=== PATIENT | male | born 2000 | race African-American/Black ===

== ENCOUNTER 2021-01-29 21:15 | Emergency (ER) | payer BC, SELFPAY ==
--- NOTE | ~2021-01-29 | XR_ITS ---
EXAMINATION: XR chest 1V portable 01/29/2021 23:40 INDICATION: Upper respiratory infection. Cough. PROCEDURE: AP portable chest COMPARISON: No prior studies for comparison. FINDINGS: The lungs are clear. The cardiomediastinal silhouette is within normal limits. There are no pleural effusions. There is no pneumothorax suspected. IMPRESSION: 1: NO ACUTE CARDIOPULMONARY DISEASE. Reviewed, dictated and finalized at location A. OR PIPING DESIGNER
[2021-01-29 21:23] VITALS: BP 141/83; PULSE 91; RESP 18; TEMP 36.6; O2SAT 97
--- NOTE | 2021-01-29 22:55 | ED.URI ---
HPI - URI/Sore Throat General Chief Complaint: Upper Respiratory Infection Stated Complaint: cough, chest tightness Time Seen by Provider: 01/29/21 22:55 Source: patient Mode of arrival: ambulatory Limitations: no limitations History of Present Illness HPI Narrative: The patient is a 20-year-old male presenting for evaluation of cough, congestion, chest tightness. Patient states he has felt unwell over the past 72 hours. Denies fever or chills. Reports sinus congestion, runny nose. He denies sore throat, ear pain. Reports cough without significant shortness of breath. Reports a tightness in his chest without wheezing patient denies any pleuritic chest pain. No pain with deep inspiration. No leg swelling or calf pain. States he has received 1 Covid vaccination in his series. 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 Denies loss of sense of taste or smell. No abdominal pain, nausea, vomiting, diarrhea. Denies myalgias patient states she has been taking DayQuil/NyQuil without much improvement in his symptoms. Related Data Allergies Allergy/AdvReac Type Severity Reaction Status Date / Time lidocaine Allergy Hives Verified 01/29/21 21:49 Review of Systems Review of Systems: CONSTITUTIONAL: Denies fever, chills, or sweats. EYES: Denies visual changes, redness, or discharge. ENT: Reports rhinorrhea and congestion CARDIOVASCULAR: Denies chest pain, palpitations, or edema. Does report chest tightness. RESPIRATORY: Reports cough without shortness of breath GASTROINTESTINAL: Denies abdominal pain, nausea, vomiting, or diarrhea. GENITOURINARY: Denies dysuria or hematuria. SKIN: Denies rash or itching. MUSCULOSKELETAL: Denies back pain, joint pain, or myalgia. NEUROLOGIC: Denies headache, numbness, or weakness. [facility] Social History Social History (Updated 01/29/21 @ 23:25 by Minerva Elkins MD) Smoking status: Current every day smoker Tobacco type: e-cigarettes/vaping Alcohol intake: never Substance use: current Substance use type: marijuana Gender identity (if verbalized by the patient): Male Exam Narrative: GENERAL: Awake, alert, conversant HEAD: Normocephalic, atraumatic. EYES: PERRLA and EOMI. ENT: Rhinorrhea, uvula is midline without erythema, edema, induration NECK: Supple. No lymphadenopathy. CHEST: No respiratory distress, breathing even and non labored, coarse respirations bilaterally, no wheezing, no crackles HEART: Regular rate, sinus rhythm ABDOMEN:Non distended, non tender EXTREMITIES: Normal range of motion. No edema. SKIN: Warm, dry, no rash. NEURO:No focal deficits. Alert and oriented x3 Course Vital Signs Vital signs: Vital Signs Temperature 36.6 C 01/29/21 21:23 Pulse Rate 91 01/29/21 21:23 Respiratory Rate 18 01/29/21 21:23 Blood Pressure 141/83 H 01/29/21 21:23 Pulse Oximetry 97 01/29/21 21:23 Temperature 36.6 C 01/29/21 21:23 Pulse Rate 91 01/29/21 21:23 Respiratory Rate 18 01/29/21 21:23 Blood Pressure 141/83 H 01/29/21 21:23 Pulse Oximetry 97 01/29/21 21:23 MDM - URI/Sore Throat MDM Narrative Medical decision making narrative: Patient presenting for evaluation of cough, congestion, chest tightness that has lasted over 72 hours. The time of assessment, patient does have rhinorrhea, sinus congestion. Vital signs are normal. He is afebrile. Patient without typical Covid type features. 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 Laboratory results are reassuring. No lymphopenia. No anemia. No electrolyte derangement or acute kidney injury. Chest x-ray without evidence of pneumonia. At this point, patient is hemodynamically stable, will be able to be discharged home, will prescribe medications for symptomatic relief. At this point, patient is afebrile, no leukocytosis, nothing to be suggestive of bacterial infection, and per guidelines, patient does not warrant anti
--- NOTE | 2021-01-29 23:22 | ECG_ITS ---
Measurements Intervals [place] Rate: 63 P: 61 [place]: 172 QRS: 29 QRSD: 110 T: 27 QT: 400 QTc: 412 Interpretive Statements SINUS RHYTHM WITH SINUS ARRHYTHMIA ST ELEVATION IN DIFFUSE LEADS CONSISTENT WITH INJURY, PERICARDITIS, OR EARLY REPOLARIZATION ABNORMAL ECG Electronically Signed On 01-30-2021 6:36:30 BLOW PIT OPERATOR by Kojo Juan D.O.
[2021-01-29 23:39] LABS: Basophils Absolute Auto 0.1 K/mm3 (0.0-0.1); Basophils Percent Auto 1.1 % (0.2-1.2); Eosinophils Absolute Auto 0.2 K/mm3 (0-0.3); Hematocrit 43.2 % (42.0-52.0); Hemoglobin 14.9 g/dL (14.0-18.0); Immature Granulocyte Absolute 0.01 K/mm3 (0.00-0.031); Immature Granulocyte Percent A 0.2 % (0-0.5); Mean Corpuscular HGB Conc 34.5 g/dl (32-36); Mean Platelet Volume 8.8 fl (7.4-10.4); Monocytes Absolute Auto 0.6 K/mm3 (0.1-0.6); Monocytes Percent Auto 12.4 % (2.6-8.5); Neutrophils Absolute Auto 1.7 K/mm3 (1.3-6.7); Neutrophils Percent Auto 38.3 % (45.5-73.1); Platelet Count Result 209 k/mm3 (150-375); White Blood Count 4.4 K/mm3 (4.5-10.0)
[2021-01-29 23:50] LABS: Anion Gap 9 mmol/L (8-16); Blood Urea Nitrogen 10 mg/dL (9-20); Carbon Dioxide 24 mmol/L (22-30); Chloride 102 mmol/L (98-107); Estimated CRCL calculation 139 ml/min; Estimated Glomerular Filt Rate > 60; Glucose 105 mg/dL (65-110); Potassium 3.6 mmol/L (3.4-5.0); Sodium 135 mmol/L (137-145)
[2021-01-30 00:02] LABS: Troponin I < 0.012 ng/mL (0.000-0.034)
[2021-01-30 01:08] VITALS: BP 148/81; PULSE 80; RESP 16; O2SAT 100
[2021-01-30 17:55] LABS: SARS-CoV-2 RNA PCR Negative
== END 2021-01-30 01:09 | disposition home or self-care (01) ==
PROVIDERS: Emergency Provider Emergency Medicine
DX: J06.9 Acute upper respiratory infection, unspecified (principal); Z20.822 Contact with and (suspected) exposure to COVID-19; F17.290 Nicotine dependence, other tobacco product, uncomplicated; R94.31 Abnormal electrocardiogram [ECG] [EKG]
CPT/HCPCS: 36415; 71045; 80048; 84484; 85025; 93005; 99284; C9803; U0003; U0005

== ENCOUNTER 2022-06-10 04:41 | Emergency (ER) | payer BC, SELFPAY ==
[2022-06-10 04:45] VITALS: PULSE 57; RESP 21; TEMP 36.9; O2SAT 97
[2022-06-10 04:46] VITALS: BP 140/61; PULSE 59; RESP 23; O2SAT 97
[2022-06-10 04:48] VITALS: BP 140/61
[2022-06-10 05:03] LABS: Basophils Absolute Auto 0.1 K/mm3 (0.0-0.1); Eosinophils Absolute Auto 0.1 K/mm3 (0-0.3); Eosinophils Percent Auto 1.5 % (0-4.4); Hemoglobin 13.4 g/dL (14.0-18.0); Immature Granulocyte Absolute 0.01 K/mm3 (0.00-0.031); Immature Granulocyte Percent A 0.2 % (0-0.5); Lymphocytes Absolute Auto 0.94 K/mm3 (0.9-3.2); Lymphocytes Percent Auto 15.5 % (18.3-44.2); Mean Corpuscular HGB Conc 33.5 g/dl (32-36); Mean Corpuscular Hemoglobin 30.8 pg (26-34); Mean Platelet Volume 8.7 fl (7.4-10.4); Monocytes Absolute Auto 0.2 K/mm3 (0.1-0.6); Monocytes Percent Auto 3.8 % (2.6-8.5); Neutrophils Absolute Auto 4.7 K/mm3 (1.3-6.7); Platelet Count Result 244 k/mm3 (150-375); Red Blood Count 4.35 M/mm3 (4.6-6.20); Red Cell Distribution Width 12.3 % (11.5-14.5); White Blood Count 6.1 K/mm3 (4.5-10.0)
[2022-06-10 05:12] LABS: Alanine Aminotransferase 27 U/L (6-50); Albumin Level 4.5 g/dL (3.5-5.1); Alkaline Phosphatase 70 U/L (38-126); Anion Gap 7 mmol/L (8-16); Aspartate Amino Transferase 27 U/L (17-59); Bilirubin,Total 0.7 mg/dL (0.2-1.3); Blood Urea Nitrogen 11 mg/dL (9-20); Calcium 9.2 mg/dL (8.4-10.2); Carbon Dioxide 28 mmol/L (22-30); Chloride 106 mmol/L (98-107); Estimated CRCL calculation 138 ml/min; Estimated Glomerular Filt Rate > 60; Glucose 116 mg/dL (65-110); Lipase 31 U/L (23-300); Potassium 3.6 mmol/L (3.4-5.0); Sodium 141 mmol/L (137-145)
[2022-06-10] MEDS: SODIUM CHLORIDE 0.9% IV 1,000 ML 999 ML IV CONT (05:20)
[2022-06-10] MEDS: ONDANSETRON INJ 4 MG/2 ML VIAL IV PUSH (05:20)
--- NOTE | 2022-06-10 05:28 | ED.GENADULT ---
HPI - General Adult General Chief complaint: Nausea/Vomiting/Diarrhea Stated complaint: vomiting Time Seen by Provider: 06/10/22 04:50 History of Present Illness HPI narrative: Patient a 22-year-old gentleman who presents the emergency department with chief complaint of nausea and vomiting. Patient reports that he had a few drinks this evening went to bed and woke up with a rumbling in his stomach. The patient states that he got up and then tried to drink some sports drink and then vomited. The patient states that he then went and got a drink from [employer] and then vomited again Related Data Allergies Allergy/AdvReac Type Severity Reaction Status Date / Time lidocaine Allergy Hives Verified 01/29/21 21:49 Review of Systems Review of Systems: A 10 system review of systems was completed on the patient and is negative except for what is stated in the HPI. Nursing and ancillary documentation was reviewed. [facility] Social History Social History Smoking status: Current every day smoker Tobacco type: e-cigarettes/vaping Alcohol intake: never Substance use: current Substance use type: marijuana Gender identity (if verbalized by the patient): Male Exam Narrative: GENERAL: Well-appearing, well-nourished, and in no acute distress. HEAD: Normocephalic, atraumatic. EYES: PERRLA and EOMI. ENT: Nares clear, no rhinorrhea or epistaxis. Mucous membranes moist. NECK: Supple. CHEST: Clear to auscultation. No respiratory distress. HEART: Regular rate and rhythm. No murmur heard. Normal peripheral pulses. ABDOMEN: Soft, nontender, nondistended, normal active bowel sounds. EXTREMITIES: Normal range of motion. No edema. SKIN: Warm, dry, no rash. NEURO: No focal deficits. Alert and oriented x3. PSYCH: Normal mood and affect. Course Vital Signs Vital signs: Vital Signs Temperature 36.9 C 06/10/22 04:45 Pulse Rate 57 L 06/10/22 04:45 Respiratory Rate 21 H 06/10/22 04:45 Pulse Oximetry 97 06/10/22 04:45 Temperature 36.9 C 06/10/22 04:45 Pulse Rate 63 06/10/22 05:45 Respiratory Rate 19 06/10/22 05:45 Blood Pressure 140/61 06/10/22 04:48 Pulse Oximetry 100 06/10/22 05:45 Medical Decision Making [facility] Narrative Medical decision making narrative: Differential diagnosis includes gastroenteritis, gastritis, Oratory studies were obtained which were within normal limits patient a white count of 6.1 hemoglobin of 13.4 electrolytes showed a creatinine of 0.9 and a BUN of 11 Patient received a liter of normal saline and Zofran in the emergency department the patient is feeling much better at this time patient will be p.o. challenged and the plan will be to discharge the patient home with a prescription for Zofran. Vital Signs Vital Signs: Vital Signs Temperature 36.9 C 06/10/22 04:45 Pulse Rate 57 L 06/10/22 04:45 Respiratory Rate 21 H 06/10/22 04:45 Pulse Oximetry 97 06/10/22 04:45 Temperature 36.9 C 06/10/22 04:45 Pulse Rate 63 06/10/22 05:45 Respiratory Rate 19 06/10/22 05:45 Blood Pressure 140/61 06/10/22 04:48 Pulse Oximetry 100 06/10/22 05:45 Lab Data 06/10/22 04:58 06/10/22 04:58 Labs: Lab Results 06/10/22 06/10/22 06/10/22 Range/Units 04:58 04:58 04:58 WBC 6.1 (4.5-10.0) K/mm3 RBC 4.35 L (4.6-6.20) M/mm3 Hgb 13.4 L (14.0-18.0) g/dL Hct 40.0 L (42.0-52.0) % MCV 92.0 (80-100) fl MCH 30.8 (26-34) pg MCHC 33.5 (32-36) g/dl RDW 12.3 (11.5-14.5) % Plt Count 244 (150-375) k/mm3 MPV 8.7 (7.4-10.4) fl Immature Gran % (Auto) 0.2 (0-0.5) % Neut % (Auto) 78.0 H (45.5-73.1) % Lymph % (Auto) 15.5 L (18.3-44.2) % [place] % (Auto) 3.8 (2.6-8.5) % Eos % (Auto) 1.5 (0-4.4) % Baso % (Auto) 1.0 (0.2-1.2) % Lymph # (Auto) 0.94 (0.9-3.2) K/mm3 [place] # (Auto) 0.2 (0.1-0.6) K/mm3
[2022-06-10 05:45] VITALS: PULSE 63; RESP 19; O2SAT 100
== END 2022-06-10 08:00 | disposition home or self-care (01) ==
PROVIDERS: Emergency Provider Emergency Medicine
DX: R11.2 Nausea with vomiting, unspecified (principal); F17.290 Nicotine dependence, other tobacco product, uncomplicated
CPT/HCPCS: 36415; 80053; 83690; 85025; 96361; 96374; 99284; J2405; J7030

== ENCOUNTER 2022-09-12 14:12 | Emergency (ER) | payer BC, SELFPAY ==
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
[2022-09-12 14:15] VITALS: BP 147/82; PULSE 61; RESP 17; TEMP 36.4; O2SAT 99
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
[2022-09-12] MEDS: KETOROLAC (*BKC) 60 MG/2 ML VIAL IM (14:40)
== END 2022-09-12 15:31 | disposition home or self-care (01) ==
PROVIDERS: Emergency Provider Nurse Practitioner Family
DX: M54.2 Cervicalgia (principal); F17.219 Nicotine dependence, cigarettes, with unspecified nicotine-induced disorders; V89.2XXA Person injured in unspecified motor-vehicle accident, traffic, initial encounter
CPT/HCPCS: 72040; 96372; 99283; J1885

== ENCOUNTER 2023-11-30 02:32 | Emergency (ER) | payer OTHER, SELFPAY ==
[2023-11-30] VITALS (12 sets, daily range): BP systolic 107–155; BP diastolic 38–65; PULSE 81–108; RESP 15–34; TEMP 36.4; O2SAT 95–100
--- NOTE | ~2023-11-30 | XR_ITS ---
EXAMINATION: XR chest 1V portable DATE: 11/30/2023 05:40 INDICATION: Chest pain. TECHNIQUE: A single frontal view of the chest was obtained. COMPARISON: Chest single view 01/29/2021 FINDINGS: The patient is rotated to his right. There is no pneumonia, pleural effusion, or pneumothor ax. The heart size is normal. IMPRESSION: 1. No acute cardiopulmonary disease. Reviewed, dictated and finalized at location A.
[2023-11-30] MEDS: MIDAZOLAM HCL (*CRX) 10 MG/2 ML VIAL IM (02:45)
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
--- NOTE | 2023-11-30 03:00 | ECG_ITS ---
Test Date: 2023-11-30 03:13:33 Measurements Intervals [place] Rate: 97 P: 79 GA: 152 QRS: 73 QRSD: 91 T: 33 QT: 352 QTc: 448 Interpretive Statements SINUS RHYTHM MINIMAL Q WAVES- INFERIOR LEADS ST ELEVATION IN ANTEROLAT/HIGH LAT LEADS- PROBABLY EARLY REPOLARIZATION BORDERLINE ECG No previous ECG available for comparison Electronically Signed On 11-30-2023 07:22:32 CDT by Kojo Juan D.O.
[2023-11-30] MEDS: SODIUM CHLORIDE 0.9% IV 1,000 ML 999 ML IV CONT ×2 (03:20→05:11)
[2023-11-30 03:47] LABS: Basophils Absolute Auto 0.1 K/mm3 (0.0-0.1); Basophils Percent Auto 1.1 % (0.2-1.2); Eosinophils Absolute Auto 0.2 K/mm3 (0-0.3); Eosinophils Percent Auto 4.8 % (0-4.4); Hematocrit 42.8 % (42.0-52.0); Hemoglobin 14.5 g/dL (14.0-18.0); Immature Granulocyte Absolute 0.02 K/mm3 (0.00-0.031); Immature Granulocyte Percent A 0.4 % (0-0.5); Lymphocytes Absolute Auto 1.75 K/mm3 (0.9-3.2); Lymphocytes Percent Auto 36.8 % (18.3-44.2); Mean Corpuscular HGB Conc 33.9 g/dl (32-36); Mean Corpuscular Hemoglobin 31.1 pg (26-34); Mean Corpuscular Volume 91.8 fl (80-100); Mean Platelet Volume 9.3 fl (7.4-10.4); Monocytes Absolute Auto 0.4 K/mm3 (0.1-0.6); Monocytes Percent Auto 7.4 % (2.6-8.5); Neutrophils Absolute Auto 2.4 K/mm3 (1.3-6.7); Neutrophils Percent Auto 49.5 % (45.5-73.1); Platelet Count Result 256 k/mm3 (150-375); Red Blood Count 4.66 M/mm3 (4.6-6.20); Red Cell Distribution Width 12.6 % (11.5-14.5); White Blood Count 4.8 K/mm3 (4.5-10.0)
[2023-11-30 03:59] LABS: Acetaminophen < 10 ug/mL (10-30); Ethanol 112 mg/dL (<10); Salicylate < 1.0 mg/dL (2-20)
[2023-11-30 04:00] LABS: Alanine Aminotransferase 59 U/L (6-50); Alkaline Phosphatase 60 U/L (38-126); Anion Gap 18 mmol/L (4-12); Aspartate Amino Transferase 37 U/L (17-59); Bilirubin,Total 0.4 mg/dL (0.2-1.3); Blood Urea Nitrogen 16 mg/dL (9-20); Calcium 9.7 mg/dL (8.4-10.2); Carbon Dioxide 17 mmol/L (22-30); Chloride 110 mmol/L (98-107); Estimated CRCL calculation 89 ml/min; Estimated Glomerular Filt Rate > 60; Glucose 103 mg/dL (65-110); Potassium 3.8 mmol/L (3.4-5.0); Sodium 145 mmol/L (137-145)
[2023-11-30 04:04] LABS: Add Urine Microscopic? YES; Appearance Urine Cloudy (Clear); Bacteria Urine None Seen /hpf; Bilirubin Urine Negative (Negative); Blood Urine Negative (Negative); Color Urine Yellow (Yellow); Glucose Urine UA Negative (Negative); Ketones Urine 1+ mg/dL (Negative); Leukocyte Esterase Ur 1+ LEU/UL (Negative); Need Manual Microscopic Reviewed; Nitrate Urine Negative (Negative); Non Pathogenic Casts >20; Protein Urine 2+ mg/dL (Negative); RBC Urine 0-2 /hpf (0-2); Specific Grav Ur 1.032 (1.001-1.035); Squamous Epithelial Cell Urine None Seen /hpf (Few); WBC Urine 21-50 /hpf (0-3); pH Urine 5.5 (5.0-9.0)
[2023-11-30 04:11] LABS: Amphetamine Screen Urine Negative (Negative); Barbiturate Screen Urine Negative (Negative); Benzodiazepines Screen Urine Positive (Negative); Cannabinoid Screen Urine Positive (Negative); Cocaine Screen Urine Negative (Negative); Methadone Screen Urine Negative (Negative); Opiate Screen Urine Negative (Negative); Phencyclidine Screen Urine Negative (Negative)
[2023-11-30 04:14] LABS: Creatine Kinase 399 U/L (55-170)
--- NOTE | 2023-11-30 05:23 | PC.NURSE ---
Pt pulled out IV and ripped off monitor and speaking profanities at this time
[2023-11-30 07:08] LABS: Creatine Kinase 730 U/L (55-170)
--- NOTE | 2023-11-30 07:34 | PC.NURSE ---
Patient removed from restraints prior to shift change at 0700.
== END 2023-11-30 07:35 ==
PROVIDERS: Emergency Provider Emergency Medicine
DX: F10.120 Alcohol abuse with intoxication, uncomplicated (principal); Y90.5 Blood alcohol level of 100-119 mg/100 ml; T14.90XA Injury, unspecified, initial encounter; Y35.93XA Legal intervention, means unspecified, suspect injured, initial encounter; F17.290 Nicotine dependence, other tobacco product, uncomplicated; F12.90 Cannabis use, unspecified, uncomplicated; Z79.51 Long term (current) use of inhaled steroids
CPT/HCPCS: 36415; 71045; 80053; 80307; 81001; 82550; 85025; 87086; 93005; 96360; 96372; 99283; J2250; J7030

== ENCOUNTER 2025-03-07 15:17 | Emergency (ER) | payer OTHER, SELFPAY ==
--- NOTE | ~2025-03-07 | XR_ITS ---
XR wrist LT min 3V 03/07/2025 15:58 Indication: Left wrist pain Procedure: 4 views left wrist Comparison: No prior studies for comparison. Findings: There is widening of the scapholunate distance. No acute fracture. No significant soft tissue abnormality. No focal soft tissue abnormality.. Impression: 1: Widening of the scapholunate interval which is most consistent with scapholunate ligament injury or insufficiency. This finding can be a source of wrist pain. The combination of scapholunate interval widening and remote ulnar styloid avulsion fracture suggest prior wrist trauma with potential TFCC injury. Reviewed, dictated and finalized at location [facility] Impression: 1: Widening of the scapholunate interval which is most consistent with scapholu kamaljit ligament injury or insufficiency. This finding can be a source of wrist pa in. The combination of scapholunate interval widening and remote ulnar styloid avulsion fracture suggest prior wrist trauma with potential TFCC injury.
--- NOTE | 2025-03-07 15:20 | ED.GENADULT ---
HPI - General Adult General Chief complaint: Urogenital-Male Stated complaint: STD check / L wrist pain Time Seen by Provider: 03/07/25 15:46 Source: patient, RN notes reviewed and old records reviewed Mode of arrival: ambulatory Limitations: no limitations History of Present Illness HPI narrative: 24-year-old male presents to the [facility] with wanting to be checked for STIs, also left wrist pain for 3 months. States his goal just tested positive, things for Trichomonas. Patient states that 3 months ago early December he was lifting a log when he felt a pop and sharp pain in his wrist. Has not been able to do pushups, pull-ups or heavy lifting with his left hand. Pain in the dorsal aspect mostly ulnar side. Has good range of motion but is tender. No bruising or swelling noted Related Data Home Medications ?Medication ?Instructions ?Recorded ?Confirmed ?Last Taken ?Type No Home Medications 03/07/25 03/07/25 Unknown History Allergies Allergy/AdvReac Type Severity Reaction Status Date / Time lidocaine Allergy Hives Verified 03/07/25 15:54 Review of Systems Review of Systems: All systems reviewed & are unremarkable except as noted in HPI and below Constitutional: Constitutional: Reports no additional constitutional complaints ENT: Reports system reviewed and no additional complaints, except as documented Cardiovascular: Cardiovascular: Reports no additional cardiovascular complaints, Denies chest pain and Denies dyspnea Respiratory: Respiratory: Reports no additional respiratory complaints, Denies chest congestion, Denies cough and Denies dyspnea Musculoskeletal: Musculoskeletal: Reports as per HPI Integumentary/Breasts: Skin/Breast: Reports system reviewed and no additional complaints, except as docu PMFSH Social History Social History Smoking status: Current every day smoker Tobacco type: e-cigarettes/vaping Alcohol intake: never Substance use: current Substance use type: marijuana Gender identity (if verbalized by the patient): Male Comments At the time of my signature, I reviewed and agree with the nursing past medical, surgical, social, and family history. There is no relevant family history pertinent to the patient complaint. Exam Const: General: cooperative, healthy appearing, comfortable, no acute distress, well developed, alert and well nourished Nutritional Appearance: well nourished Orientation/consciousness: patient oriented x3 Limitations: no limitations HENMT: Head: normal to inspection Mouth: Yes Normal oral and palatal mucosa present, Yes lip normal, Yes tongue normal and Yes moist mucous membranes Eyes: General: appearance normal, both eyes and all related structures Alignment and Position: alignment normal Neck: Neck: normal visual inspection, full ROM, no lymphadenopathy and no meningeal signs Chest: Chest palpation & inspection: normal inspection of the chest Resp: Effort & Inspection: normal respiratory effort and able to speak in complete sentences Cardio: Rate: regular rate Skin: General skin exam: normal color and no rashes or lesions noted Neuro: General: patient oriented x3, gait normal, moves all extremities and no meningeal signs Cognition (Neuro): normal cognition Speech: normal speech Gait exam (Neuro): Normal gait present Extrem: General: normal to inspection, full ROM, capillary refill normal and normal gait Left upper extremity: wrist tenderness, normal ROM, normal vascular exam and radial pulse present; no swelling, no unusual warmth, no abrasions, no ecchymosis, no penetrating wound and no deformity Psych: Appearance: grossly normal and well kempt Mental Status: mental status grossly normal Speech and movement: Normal speech and movement present and Clear speech present Affect: normal affect Attitude: cooperative Course Course Level of Care: Express Care Visit Vital Signs Vital signs: Vital Signs Temperature 98.2 F 03/07/25 15:39 Pulse Rate 55 L 03/07/25 15:39 Respiratory Rate 16 03/07/25 15:39 Blood Pressure 153/85 H 03/07/25 15:39 Pulse Oximetry 99 03/07/25 15:39 Temperature 98.2 F 03/07/25 15:39 Pulse Rate 55 L 03/07/25 15:39 Respiratory Rate 16 03/07/25 15:39 Blood Pressure 153/85 H 03/07/25 15:39 Pulse Oximetry 99 03/07/25 15:39 reviewed MDM MDM Narrative Medical decision making narrative: Patient sitting in exam room. Patient is requesting STI testing. Discussed that we only offer 3. Will notify patient if positive. Patient with 3 months of left wrist pain. No treatment or worst never seeked medical assessment prior to today. X-ray shows most likely old ulnar styloid, concern for ligament issue. Will refer to wrist/hand Splint was placed Patient appropriate for outpatient treatment with close follow-up Discharge instructions reviewed with patient, as well as provided in writing per nursing staff. The instructions also include specific and strict return/GO TO THE ER as well as f/u information. All questions have been answered, and the patient deny any further questions with discharge and discharge plan. Some parts of this dictation were generated by voice recognition software and may contain typographical and/or grammatical inaccuracies. Differential Diagnosis Differential Diagnosis: Differential diagnostic considerations for upper extremity injury include sprain/strain of wrist, fracture of wrist, finger sprain, dislocation of finger, fracture of hand, dislocation of shoulder, fracture of humerus, fracture of clavicle, laceration, tendon injury, carpal tunnel syndrome.? Lab Data [facility] Lab Attestation statement: I personally reviewed the patient's lab results. Labs: Lab Results 03/07/25 Range/Units 15:19 C. trachomatis (PCR) Pending N. gonorrhoeae (PCR) Pending T. vaginalis (PCR) Not detected (NOT DETECTE) Reviewed Imaging Data Radiologist's impression: ITS Impressions Wrist X-Ray 03/07/25 16:25 Impression: 1: Widening of the scapholunate interval which is most consistent with scapholunate ligament injury or insufficiency. This finding can be a source of wrist pain. The combination of scapholunate interval widening and remote ulnar styloid avulsion fracture suggest prior wrist trauma with potential TFCC injury. XR wrist LT min 3V 03/07/2025 15:58 Indication: Left wrist pain Procedure: 4 views left wrist Comparison: No prior studies for comparison. Findings: There is widening of the scapholunate distance. No acute fracture. No significant soft tissue abnormality. No focal soft tissue abnormality.. Impression: 1: Widening of the scapholunate interval which is most consistent with scapholunate ligament injury or insufficiency. This finding can be a source of wrist pain. The combination of scapholunate interval widening and remote ulnar styloid avulsion fracture suggest prior wrist trauma with potential TFCC injury. Discharge Plan Discharge Clinical Impression: Concern about STI in male without diagnosis, Closed fracture of styloid process of left ulna Patient Disposition: Home Condition: Stable Instructions: Antibiotic Form, Sexually Transmitted Diseases (ED), Safe Sex Practices (ED), Wrist Injury (ED) Additional Instructions: Today your blood pressure was 153/85. Please follow-up with primary care provider, a list was given to you. You have been tested for chlamydia, gonorrhea and Trichomonas. If anything comes back positive we will notify you and correct antibiotic will be called in or have you return to clinic. It is extremely important you follow-up with a hand and wrist specialist. For further evaluation of your hand and wrist pain. Wear the splint Take ibuprofen 600 mg alternating with 500 mg of acetaminophen Patient Language: Croatian Prescriptions: No Action No Home Medications Follow-up/Referrals: Zenaida Obando MD [Physician, Plastic Surgery] - 3 Days Referral Note: Ulnar styloid avulsion. Concern for ligament injury, scaphoid widening Clinical Impression: Closed fracture of styloid process of left ulna Nas Strange MD [Physician, Family Practice] - 1 Week Referral Note: blood pressure check PHYSICIAN,DIRECTOR STRATEGIC ACCOUNT MANAGEMENT [Primary Care Provider, Internal Medicine] Time of Disposition: 16:39
[2025-03-07 15:39] VITALS: BP 153/85; PULSE 55; RESP 16; TEMP 36.8; O2SAT 99
[2025-03-07 20:04] LABS: Trichomonas Vag PCR NOT DETECTED (NOT DETECTE)
== END 2025-03-07 16:51 | disposition home or self-care (01) ==
PROVIDERS: Emergency Provider Nurse Practitioner
DX: S52.612A Displaced fracture of left ulna styloid process, initial encounter for closed fracture (principal); X58.XXXA Exposure to other specified factors, initial encounter; Z11.3 Encounter for screening for infections with a predominantly sexual mode of transmission; F17.290 Nicotine dependence, other tobacco product, uncomplicated
CPT/HCPCS: 73110; 87491; 87591; 87661; 99213; A4565; G0463